=== PATIENT | female | born 1985 | race Caucasian/White ===

== ENCOUNTER 2017-12-22 13:22 | Emergency (ER) | payer OTHER ==
[~2017-12-22] VITALS: Ht 162.6 cm; Wt 77.1 kg
[~2017-12-22 13:22] MED LIST: ALBU90OI INH; BUPR150ER PO; BUPRENORPHINE HC8 MG SL; CEPH500 PO; CLIN300 PO; CODACE30 PO; Cleocin HCl300 MG PO; ERGO400 PO; ERYSTE250 PO; HYDACE5 PO; IBUP400 PO; IBUP800 PO; Keflex500 MG PO; LIDO5TP TOP; LORA.5 PO; METCAR500 PO; METH10 PO; MULVITMINE PO; NAPR500 PO; NAPR550 PO; OXYACE5T PO; OXYC10TA19 PO; OXYC30ER PO; PENNAL50 PO; PROACE100 PO; PROM25 PO; Prednisone20 MG PO; RXIBUP800 PO; RXOXYACE PO; RXTRAM50 PO; SULTRIDS PO; TRAM50 PO; Zithromax250 MG PO
[2017-12-22] MEDS ORDERED: BUPRENORPHINE HC8 MG SL (14:37)
[2017-12-22] MEDS ORDERED: Vistaril25 MG PO (15:34)
[2017-12-22] MEDS ORDERED: ALBU90OI INH (15:34)
== END 2017-12-22 15:54 | disposition home or self-care (01) ==
LOC: ER 13:22
DX: F41.9 Anxiety disorder, unspecified (principal); R06.02 Shortness of breath; F17.210 Nicotine dependence, cigarettes, uncomplicated; Z88.8 Allergy status to other drugs, medicaments and biological substances; Z88.0 Allergy status to penicillin
CPT/HCPCS: 71046; 93005; 93010

== ENCOUNTER 2020-01-01 13:48 | Emergency (ER) | payer OTHER ==
[~2020-01-01] VITALS: Ht 160 cm; Wt 86.2 kg
[~2020-01-01 13:48] MED LIST changes: +Vistaril25 MG PO
[2020-01-01] MEDS ORDERED: ALBU90OI INH (16:16)
== END 2020-01-01 16:40 | disposition home or self-care (01) ==
LOC: ER 13:48
DX: J98.01 Acute bronchospasm (principal); F41.9 Anxiety disorder, unspecified; R13.10 Dysphagia, unspecified; F17.210 Nicotine dependence, cigarettes, uncomplicated; Z88.0 Allergy status to penicillin; Z88.8 Allergy status to other drugs, medicaments and biological substances
CPT/HCPCS: 71046; 99283-25

== ENCOUNTER 2021-06-26 19:31 | Emergency (ER) | payer OTHER ==
[~2021-06-26] VITALS: Ht 160 cm; Wt 77.1 kg
== END 2021-06-26 21:01 | disposition left against medical advice (07) ==
LOC: ER 19:31
DX: J06.9 Acute upper respiratory infection, unspecified (principal); Z88.0 Allergy status to penicillin; Z88.8 Allergy status to other drugs, medicaments and biological substances; F17.210 Nicotine dependence, cigarettes, uncomplicated
CPT/HCPCS: 99282

== ENCOUNTER 2024-03-26 18:46 | Emergency (ER) | payer OTHER ==
[~2024-03-26] VITALS: Ht 162.6 cm; Wt 77.1 kg
[2024-03-26 19:16] VITALS: BP 143/90
[2024-03-26] MEDS ORDERED: [UNRECOGNIZED DRUG - CODE] SS (19:24)
[2024-03-26] MEDS ORDERED: Nystatin 100,000 Unit/ML Susp 5 ML UDC SS ONE (19:25)
== END 2024-03-26 19:35 | disposition home or self-care (01) ==
LOC: ER 18:46
DX: B37.0 Candidal stomatitis (principal); Z88.8 Allergy status to other drugs, medicaments and biological substances; Z88.0 Allergy status to penicillin; F17.210 Nicotine dependence, cigarettes, uncomplicated
CPT/HCPCS: 99282; A9270

== ENCOUNTER 2024-07-17 16:19 | Emergency (ER) | payer OTHER ==
[~2024-07-17] VITALS: Ht 162.6 cm; Wt 90.7 kg
[~2024-07-17 16:19] MED LIST changes: +[UNRECOGNIZED DRUG - CODE] SS
[2024-07-17 16:38] VITALS: BP 152/83
== END 2024-07-17 18:52 | disposition home or self-care (01) ==
LOC: ER 16:19
DX: D17.24 Benign lipomatous neoplasm of skin and subcutaneous tissue of left leg (principal); S83.8X2A Sprain of other specified parts of left knee, initial encounter; F17.210 Nicotine dependence, cigarettes, uncomplicated; Z88.8 Allergy status to other drugs, medicaments and biological substances; Z88.0 Allergy status to penicillin; Z79.899 Other long term (current) drug therapy; X58.XXXA Exposure to other specified factors, initial encounter
CPT/HCPCS: 93971; 99283-25